=== PATIENT | female | born 1970 | race Caucasian/White ===

== ENCOUNTER 2021-01-01 09:25 | Emergency (ER) | payer OTHER ==
[~2021-01-01 09:25] MED LIST: BUSPAR 10MG10 MG PO; CARAFATE1 GM/10 ML PO; CELEXA40 MG PO; COLACE 100MG C100 MG PO; COMBIVENT0.074 GM/I INH; DULERA 100 MCG8.8 GM INH; DYAZIDE 37.5-21 EACH PO; FERROUS SULFAT325 MG PO; IPRAT-ALBUT 0.5-3 ML INH; IRON 100 PLUS1 EACH PO; METOPROLOL TART50 MG PO; NASONEX17 GM; NORVASC 5 MG TAB5 MG PO; OMNICEF 300 MG300 MG PO; PREMARIN1.25 MG PO; PROTONIX 20 MG20 MG PO; SEROQUEL100 MG PO; XYZAL5 MG PO; ZOFRAN4 MG PO
== END 2021-01-01 15:00 | disposition home or self-care (01) ==
LOC: ER1 09:25
DX: M71.22 Synovial cyst of popliteal space [Baker], left knee (principal); J45.909 Unspecified asthma, uncomplicated; K21.9 Gastro-esophageal reflux disease without esophagitis
CPT/HCPCS: 93971; 99283

== ENCOUNTER 2021-02-20 17:19 | Emergency (ER) | payer OTHER | END 2021-02-20 20:33 | disposition left against medical advice (07) | LOC: ER1 17:19 | DX: Z53.21 Procedure and treatment not carried out due to patient leaving prior to being seen by health care provider (principal) ==

== ENCOUNTER 2021-08-03 16:34 | Emergency (ER) | payer OTHER ==
[2021-08-03 18:57] LABS: RED BLOOD COUNT 2.46 M/UL (4.00-5.10); WHITE BLOOD COUNT 6.8 K/UL (4.5-11.0)
[2021-08-03 19:15] LABS: BUN/CREATININE RATIO 15 (0-10)
[2021-08-03 19:45] LABS: HEMOGLOBIN 5.6 gm/dl (12.3-15.3)
[2021-08-04] MEDS ORDERED: IRON325 M1 PO (04:58)
[2021-08-04] MEDS ORDERED: PROTONIX 40 MG40 M1 PO (05:01)
[2021-08-04] MEDS ORDERED: CARAFATE1 GM PO (05:01)
== END 2021-08-04 05:54 | disposition home or self-care (01) ==
LOC: ER1 16:34
PROVIDERS: Family Medicine
DX: D50.9 Iron deficiency anemia, unspecified (principal)
CPT/HCPCS: 36430; 80053; 83540; 83550; 85025; 85610; 86850; 86900; 86901; 86920; 93005; 99284; P9016

== ENCOUNTER 2021-11-13 15:22 | Emergency (ER) | payer OTHER ==
[~2021-11-13 15:22] MED LIST changes: +CARAFATE1 GM PO; +IRON325 M1 PO; +PROTONIX 40 MG40 M1 PO
[2021-11-13 17:00] LABS: HEMOGLOBIN 9.4 gm/dl (12.3-15.3); RED BLOOD COUNT 3.18 M/UL (4.00-5.10); WHITE BLOOD COUNT 8.8 K/UL (4.5-11.0)
[2021-11-13 17:27] LABS: BUN/CREATININE RATIO 50 (0-10)
== END 2021-11-13 21:00 | disposition short-term general hospital (02) ==
LOC: ER1 15:22
PROVIDERS: Physician Assistant
DX: D64.9 Anemia, unspecified (principal); R10.13 Epigastric pain; K92.0 Hematemesis; I10 Essential (primary) hypertension; J45.909 Unspecified asthma, uncomplicated
CPT/HCPCS: 80053; 80307; 81001; 82272; 83690; 85025; 96374; 96375; 99285; C9113; J2405

== ENCOUNTER → 2022-02-04 | Outpatient (CLI) | payer OTHER | LOC: RAD 08:00 → KOH-I 10:11 | DX: R55 Syncope and collapse (principal) | CPT/HCPCS: 70450 ==